=== PATIENT | male | born 1960 | race Caucasian/White ===

== ENCOUNTER → 2017-09-23 | Outpatient (CLI) | payer MEDICAID ==
--- NOTE | 2017-09-23 16:55 | PCVCIMAG ---
EXAM: BILATERAL LOWER EXTREMITY ARTERIAL DUPLEX INDICATION: Peripheral Arterial Disease. Leg pain. FINDINGS: Right Leg: Common femoral artery is patent. Mild stenosis origin profunda femoral artery. 80% stenosis proximal [place] superficial femoral artery. Mild stenosis distal superficial femoral artery. Popliteal artery is patent. The anterior tibial, peroneal, and posterior tibial arteries are patent. Left Leg: Satisfactory arterial waveforms in the common femoral and profunda femoral arteries and throughout the superficial femoral artery and popliteal arteries without flow-limiting stenosis. Previous stent in the mid and distal superficial femoral artery and mid and upper popliteal artery are patent. The anterior tibial, peroneal, and posterior tibial arteries are patent. IMPRESSION: 80% stenosis proximal [place] right superficial femoral artery. Previous left superficial femoral and popliteal artery stents are patent. No flow limiting stenosis in the left lower extremity identified. LOC:[id number]
== END | disposition home or self-care (01) ==
LOC: PCVCIMAG 14:52
PROVIDERS: ATTEND Nuclear Medicine Nuclear Cardiology
DX: I73.9 Peripheral vascular disease, unspecified (principal); I10 Essential (primary) hypertension; E78.00 Pure hypercholesterolemia, unspecified; M79.605 Pain in left leg; M79.604 Pain in right leg; F17.210 Nicotine dependence, cigarettes, uncomplicated; Z79.899 Other long term (current) drug therapy
CPT/HCPCS: 93925; G0463

== ENCOUNTER → 2017-10-15 | Outpatient (CLI) | payer MEDICAID | END | disposition home or self-care (01) | LOC: PCVCCLINIC 13:48 | PROVIDERS: ATTEND Internal Medicine Cardiovascular Disease | DX: I10 Essential (primary) hypertension (principal); R06.00 Dyspnea, unspecified; I73.9 Peripheral vascular disease, unspecified; I51.7 Cardiomegaly; F17.210 Nicotine dependence, cigarettes, uncomplicated; Z79.82 Long term (current) use of aspirin; Z79.899 Other long term (current) drug therapy | CPT/HCPCS: 36415; 93005; G0463 ==

== ENCOUNTER → 2017-10-28 | Outpatient (CLI) | payer MEDICAID ==
[~2017-10-28] MED LIST: DIAZEPAM 10 MG TABLET.; EPINEPHrine 1 MG/ML VIAL; HEPARIN SODIUM 5,000 UNIT/ML VIAL for PCVC.; HEPARIN for ARTERIAL LINE 1,500 ML; IODIXANOL 270 MG/ML 100 ML VIAL.; IOHEXOL 350 MG/ML 100 ML VIAL.; IV NORMAL SALINE 1000ML BAG 1,000 ML; LIDOCAINE 1% Multi-Dose 20 ML VIAL.; MIDAZOLAM HCL/PF 2 MG/2 ML VIAL.; fentaNYL PF VIAL 100 MCG/2 ML VIAL; hydrALAZINE 20 MG/ML VIAL.
== END | disposition home or self-care (01) ==
LOC: PCVCINTER 07:16
DX: I70.213 Atherosclerosis of native arteries of extremities with intermittent claudication, bilateral legs (principal); I70.1 Atherosclerosis of renal artery; I25.10 Atherosclerotic heart disease of native coronary artery without angina pectoris; E78.00 Pure hypercholesterolemia, unspecified
CPT/HCPCS: 36252; 37221; 37223; 75716; 76937; 93458; 99152; 99153; C1725; C1751; C1769; C1876; C1894; J0171; J0360; J0690; J1644; J2250; J3010; J7030; Q9967

== ENCOUNTER → 2018-05-14 | Outpatient (CLI) | payer MEDICAID | END | disposition home or self-care (01) | LOC: PCVCIMAG 09:30 | DX: I73.9 Peripheral vascular disease, unspecified (principal); I71.4 Abdominal aortic aneurysm, without rupture; I70.8 Atherosclerosis of other arteries; I25.10 Atherosclerotic heart disease of native coronary artery without angina pectoris; I10 Essential (primary) hypertension; E78.00 Pure hypercholesterolemia, unspecified; F17.210 Nicotine dependence, cigarettes, uncomplicated; Z79.82 Long term (current) use of aspirin; Z79.899 Other long term (current) drug therapy | CPT/HCPCS: 93923; 93925; 93978; G0463 ==

== ENCOUNTER → 2018-08-31 | Outpatient (CLI) | payer MEDICAID ==
--- NOTE | 2018-08-31 13:20 | PCVCIMAG ---
EXAM: AORTOILIAC DUPLEX INDICATION: Peripheral arterial disease. Abdominal aortic aneurysm. FINDINGS: AORTA: Suprarenal aorta measures maximum diameter of 2.4 cm. There is a fusiform infrarenal aortic aneurysm. The infrarenal aorta measures maximum diameter of 2.4 x 3.0 cm. No aortic stenosis. RIGHT COMMON ILIAC ARTERY: Maximum diameter is 1.2 cm. No significant stenosis. RIGHT EXTERNAL ILIAC ARTERY: No significant stenosis. LEFT COMMON ILIAC ARTERY: Maximum diameter is 1.8 cm. No significant stenosis. LEFT EXTERNAL ILIAC ARTERY: No significant stenosis. IMPRESSION: 3.0 cm infrarenal abdominal aortic aneurysm is unchanged since May 2018 study. No aortoiliac stenosis. LOC:[id number]
--- NOTE | 2018-08-31 13:27 | PCVCIMAG ---
EXAM: BILATERAL LOWER EXTREMITY ARTERIAL DUPLEX INDICATION: Peripheral Arterial Disease. Leg pain. FINDINGS: Right Leg: Common femoral artery is patent. 90% stenosis origin profunda femoral artery and origin superficial femoral artery. Remainder superficial femoral artery maintaining good patency. Popliteal artery is patent. The anterior tibial, peroneal, and posterior tibial arteries are patent. Left Leg: Common femoral artery is patent. Occlusion of the proximal profunda femoral artery. Superficial femoral and popliteal arteries show satisfactory patency throughout. Previous stents throughout the superficial femoral artery and upper popliteal artery maintaining satisfactory patency. The anterior tibial and posterior tibial arteries are patent. Occlusion of the distal peroneal artery. IMPRESSION: 90% stenosis origin right profunda femoral artery and origin right superficial femoral artery are unchanged. Previous left superficial femoral artery and popliteal artery stents maintaining good patency. Occlusion left profunda femoral artery. LOC:[id number]
== END | disposition home or self-care (01) ==
LOC: PCVCIMAG 12:55
PROVIDERS: ATTEND Internal Medicine Cardiovascular Disease
DX: I73.9 Peripheral vascular disease, unspecified (principal); I71.4 Abdominal aortic aneurysm, without rupture
CPT/HCPCS: 93925; 93978

== ENCOUNTER → 2019-02-26 | Outpatient (CLI) | payer MEDICAID ==
--- NOTE | 2019-02-26 09:30 | PCVCIMAG ---
EXAM: BILATERAL CAROTID DUPLEX INDICATION: 81 FINDINGS: Doppler Measurements (centimeters per second): RIGHT: Peak CCA-81, Peak ECA-87, Diastolic ICA-33, Peak ICA-76, ICA/CCA Ratio-0.9. LEFT: Peak CCA-92, Peak ECA-94, Diastolic ICA-22, Peak ICA-64, ICA/CCA Ratio-0.7. RIGHT CAROTID: The carotid bulb has moderate plaque. The proximal internal carotid artery shows <40% stenosis. The common carotid artery shows no significant stenosis. The external carotid artery shows no significant stenosis. LEFT CAROTID: The carotid bulb has mild plaque. The proximal internal carotid artery shows <40% stenosis. The common carotid artery shows no significant stenosis. The external carotid artery shows no significant stenosis. Antegrade flow in both vertebral arteries. IMPRESSION: <40% stenosis of the right internal carotid artery with moderate plaque. <40% stenosis of the left internal carotid artery with mild plaque. LOC:[place] [id number]
--- NOTE | 2019-02-26 10:04 | PCVCIMAG ---
EXAM: NONINVASIVE ARTERIAL EXAMINATION OF BOTH LOWER EXTREMITIES INCLUDING PRE AND POST EXERCISE PRESSURE MEASUREMENTS AND DOPPLER WAVEFORMS INDICATION: Peripheral Arterial Disease. Leg pain. FINDINGS: Right Brachial: 147 mm Hg. Right Dorsalis Pedis: 104 mm Hg. Right Posterior Tibial: 120 mm Hg. Right NEGRITA = 0.82. Left Brachial: 145 mm Hg. Left Dorsalis Pedis: 146 mm Hg. Left Posterior Tibial: 0 mm Hg. Left NEGRITA = 0.99. Post Exercise: Right Brachial 146 mm Hg. Right Anterior Tibial: 72 mm Hg. Left Dorsalis Pedis: 118 mm Hg. Right NEGRITA = 0.49. Left NEGRITA = 0.81. IMPRESSION: Minimal resting ischemia in the right lower extremity. Moderate exercise induced ischemia in the right lower extremity. No resting ischemia in the left lower extremity. Minimal exercise induced ischemia in the left lower extremity. LOC:[id number]
--- NOTE | 2019-02-26 10:18 | PCVCIMAG ---
EXAM: BILATERAL LOWER EXTREMITY ARTERIAL DUPLEX INDICATION: Peripheral Arterial Disease. Leg pain. FINDINGS: Right Le% stenosis junction of the common femoral artery and origin superficial femoral artery with 90% stenosis origin profunda femoral artery. Remainder of the superficial femoral artery is patent as is the popliteal artery. The anterior tibial, peroneal, and posterior tibial arteries are patent. Left Leg: Common femoral artery is patent. Occlusion proximal profunda femoral artery. Superficial femoral artery and popliteal artery are patent including stent distal superficial femoral artery and mid/upper popliteal artery. Occlusion of the mid/distal posterior tibial artery. The anterior tibial and peroneal arteries are patent. IMPRESSION: 90% stenosis origin right profunda femoral artery and origin right superficial femoral artery. Otherwise no flow-limiting stenosis in the right lower extremity. Previous left superficial femoral artery and popliteal artery stents maintaining good patency. Occlusion mid/distal left posterior tibial artery. LOC:[place] [id number]
== END | disposition home or self-care (01) ==
LOC: PCVCIMAG 07:55
PROVIDERS: ATTEND Internal Medicine Cardiovascular Disease
DX: I65.23 Occlusion and stenosis of bilateral carotid arteries (principal); I73.9 Peripheral vascular disease, unspecified; R09.89 Other specified symptoms and signs involving the circulatory and respiratory systems; E78.00 Pure hypercholesterolemia, unspecified; I10 Essential (primary) hypertension; I25.10 Atherosclerotic heart disease of native coronary artery without angina pectoris; I71.4 Abdominal aortic aneurysm, without rupture
CPT/HCPCS: 93880; 93924; 93925

== ENCOUNTER → 2019-08-25 | Outpatient (CLI) | payer MEDICAID ==
--- NOTE | 2019-08-25 12:58 | PCVCIMAG ---
APPROVED REPORT Study performed: 08/25/2019 11:51:58 EXAM: Comprehensive 2D, Doppler, and color-flow Echocardiogram Patient Location: Echo lab Status: routine BSA: 1.95 HR: 54 bpmBP: 130/60 mmHg Rhythm: Bradycardia Other Information Study Quality: Adequate Risk Factors: Cardiac Risk Factors: HTN, Smoking Indications COPD CAD 2D Dimensions IVSd: 12.71 (7-11mm) LVDd: 39.68 mm PWd: 11.02 (7-11mm) LVDs: 32.48 (25-40mm) Left Atrium: 44.03 (27-40mm) Aortic Root: 32.31 mm LV Single Plane 4CH: 66.66 % LV Single Plane 2CH: 68.01 % Biplane EF: 68.8 % Volumes Left Atrial Volume (Systole) Single Plane 4CH: 57.37 mLSingle Plane 2CH: 90.90 mL LA ESV Index: 37.00 mL/m2 Aortic Valve AoV Peak Rohan.: 1.30 m/s AO Peak Gr.: 6.79 mmHgLVOT Max P.18 mmHg LVOT Max V: 1.14 m/s Mitral Valve E/A Ratio: 1.8 MV Decel. Time: 208.38 ms MV E Max Rohan.: 0.76 m/s MV A Rohan.: 0.43 m/s IVRT: 169.55 ms Pulmonary Valve PV Peak Rohan.: 1.17 m/sPV Peak Gr.: 5.52 mmHg Pulmonary Vein P Vein S: 0.33 m/sP Vein A: 0.27 m/s P Vein D: 0.56 m/sP Vein A Dur.: 169.6 msec P Vein S/D Ratio: 0.59 Tricuspid Valve TR Peak Rohan.: 2.52 m/s TR Peak Gr.: 25.43 mmHg Left Ventricle The left ventricle is normal size. There is normal LV segmental wall motion. Mild concentric left ventricular hypertrophy. Left ventricular systolic function is normal. The left ventricular ejection fraction is within the normal range. LVEF is 65%. Grade II - pseudonormal filling dynamics. Right Ventricle The right ventricle is normal size. The right ventricular systolic function is normal. Atria The left atrium size is normal. The right atrium size is normal. Aortic Valve The aortic valve is normal in structure. No aortic regurgitation is present. There is no aortic valvular stenosis. Mitral Valve The mitral valve is normal in structure. Trace mitral regurgitation. No evidence of mitral valve stenosis. Tricuspid Valve The tricuspid valve is normal in structure. Mild tricuspid regurgitation with PAP of 32 mmHg. Pulmonic Valve The pulmonary valve is normal in structure. There is no pulmonic valvular regurgitation. Great Vessels The aortic root is normal in size. IVC is normal in size and collapses >50% with inspiration. Pericardium There is no pericardial effusion. There is no pleural effusion. <Conclusion> The left ventricle is normal size. Mild concentric left ventricular hypertrophy. Left ventricular systolic function is normal. Grade II - pseudonormal filling dynamics. The right ventricle is normal size. The left atrium size is normal. The aortic valve is normal in structure. Trace mitral regurgitation. Mild tricuspid regurgitation with PAP of 32 mmHg.
--- NOTE | 2019-08-25 17:48 | PCVCIMAG ---
EXAM: AORTOILIAC DUPLEX INDICATION: Peripheral arterial disease FINDINGS: AORTA: Suprarenal aorta measures maximum diameter of 2.8 cm. There is not a fusiform infrarenal aortic aneurysm. The infrarenal aorta measures maximum diameter of 2.5 cm. No aortic stenosis. RIGHT COMMON ILIAC ARTERY: Maximum diameter is 1.2 cm. No significant stenosis. RIGHT EXTERNAL ILIAC ARTERY: No significant stenosis. LEFT COMMON ILIAC ARTERY: Maximum diameter is 1.5 cm. No significant stenosis. LEFT EXTERNAL ILIAC ARTERY: No significant stenosis. IMPRESSION: No abdominal aortic aneurysm. No aortoiliac stenosis seen. Previous bilateral iliac stents remain patent. LOC:[id number]
--- NOTE | 2019-08-25 17:49 | PCVCIMAG ---
EXAM: NONINVASIVE ARTERIAL EXAMINATION OF BOTH LOWER EXTREMITIES INCLUDING PRE AND POST EXERCISE PRESSURE MEASUREMENTS AND DOPPLER WAVEFORMS INDICATION: Peripheral Arterial Disease. Leg pain. FINDINGS: Right Brachial: 123 mm Hg. Right Dorsalis Pedis: 119 mm Hg. Right Posterior Tibial: 119 mm Hg. Right NEGRITA = 0.97. Left Brachial: 117 mm Hg. Left Dorsalis Pedis: 122 mm Hg. Left Posterior Tibial: 0 mm Hg. Left NEGRITA = 0.99. Post Exercise: Right Brachial 124 mm Hg. Right Posterior Tibial: 122 mm Hg. Left Dorsalis Pedis: 112 mm Hg. Right NEGRITA = 0.98. Left NEGRITA = 0.90. IMPRESSION: No resting ischemia in the right lower extremity. No exercise induced ischemia in the right lower extremity. No resting ischemia in the left lower extremity. No exercise induced ischemia in the left lower extremity. LOC:[id number]
--- NOTE | 2019-08-25 17:51 | PCVCIMAG ---
EXAM: BILATERAL LOWER EXTREMITY ARTERIAL DUPLEX INDICATION: Peripheral Arterial Disease. Leg pain. FINDINGS: Right Leg: Satisfactory arterial waveforms throughout the common/profunda/superficial femoral, popliteal, anterior tibial, peroneal, and posterior tibial arteries. No flow limiting stenosis seen. Left Leg: Common femoral artery is patent. Occlusion origin profunda femoral artery. Superficial femoral artery and popliteal artery are patent. Previous stent mid/distal superficial femoral artery and popliteal artery remain patent. Occlusion of the mid/distal peroneal and posterior tibial arteries. Anterior tibial artery is patent. IMPRESSION: No flow limiting stenosis in the right lower extremity. Occlusion of the left mid/distal peroneal and posterior tibial arteries. Otherwise no flow limiting stenosis in the left lower extremity. Previous left superficial femoral artery and popliteal artery stents remain patent. LOC:[id number]
== END | disposition home or self-care (01) ==
LOC: PCVCIMAG 09:41
PROVIDERS: ATTEND Internal Medicine Cardiovascular Disease
DX: I07.1 Rheumatic tricuspid insufficiency (principal); I71.4 Abdominal aortic aneurysm, without rupture; E78.00 Pure hypercholesterolemia, unspecified; I73.9 Peripheral vascular disease, unspecified; I25.10 Atherosclerotic heart disease of native coronary artery without angina pectoris
CPT/HCPCS: 93306; 93924; 93925; 93978